=== PATIENT | female | born 1955 | race Caucasian/White ===

== ENCOUNTER 2016-07-01 13:00 | Emergency (ER) | payer SELFPAY ==
[2016-07-01 13:04] VITALS: O2SAT 99
[2016-07-01 14:06] LABS: BASOPHILS % (AUTO) 1 % (0-3); EOSINOPHILS % (AUTO) 1 % (0-9); HEMATOCRIT 42 % (35-47); MEAN CORPUSCULAR HGB CONC 35.3 gm/dl (32.0-36.0); MONOCYTES % (AUTO) 7.6 % (0-12); NEUTROPHILS % (AUTO) 63.5 % (37-80)
[2016-07-01 14:11] LABS: APPEARANCE,URINE Clear; BILIRUBIN,URINE NEGATIVE (NEGATIVE); COLOR,URINE Yellow; GLUCOSE, URINE (UA) NEGATIVE (NEGATIVE); KETONES,URINE NEGATIVE (NEGATIVE); LEUKOCYTE ESTERASE ,URINE NEGATIVE (NEGATIVE); NITRATE,URINE NEGATIVE (NEGATIVE); OCCULT BLOOD,URINE NEGATIVE (NEG-TRACE); UROBILINOGEN,URINE 0.2 (0.2-1.0 EU)
[2016-07-01 14:20] LABS: AMPHETAMINES NEGATIVE (NEGATIVE); METHADONE NEGATIVE (NEGATIVE); OPIATES(OP13) NEGATIVE (NEGATIVE); OXYCODONE(OXY) NEGATIVE (NEGATIVE); PROPOXYPHENE(PPX) NEGATIVE (NEGATIVE); RBC,URINE 0-2 (0-3AV/HPF); WBC,URINE 0-2 (0-5AV/HPF)
[2016-07-01 14:26] LABS: ALBUMIN 4.3 gm/dl (3.4-5.0); ALT 30 IU/L (14-63); CALCIUM 9.4 mg/dl (8.5-10.1); GLOM FILT RATE 98 mL/min (>60); POTASSIUM 3.6 mMol/L (3.5-5.1); SODIUM 141 mMol/L (136-145); THYROID STIMULATING HORMONE 2.342 uU/ml (0.358-3.740)
[2016-07-01 17:25] VITALS: BP 107/72; PULSE 76; RESP 16; TEMP 98.4
== END 2016-07-01 19:04 | disposition short-term general hospital (02) | DRG 885 ==
LOC: ED 13:00
DX: F29 Unspecified psychosis not due to a substance or known physiological condition (principal)
CPT/HCPCS: 36415; 80053; 80320; 81001; 84443; 85025; 99283

== ENCOUNTER 2018-01-07 18:05 | Emergency (ER) | payer BC ==
[2018-01-07] MEDS ORDERED: LIDOCAINE 1% W/EPI MPF 30 ML SOL ONE (18:32)
[2018-01-07] MEDS ORDERED: LIDOCAINE 1% W/EPI MPF 30 ML SOL INFIL ONE (19:00)
[2018-01-07 19:34] VITALS: TEMP 97.7
[2018-01-07 19:54] VITALS: BP 148/75; PULSE 64; RESP 22; O2SAT 100
== END 2018-01-07 20:21 | disposition home or self-care (01) ==
LOC: ED 18:05
DX: S01.81XA Laceration without foreign body of other part of head, initial encounter (principal)
CPT/HCPCS: 12002; 12034; 70450; 93005; 99283; A6402; A6446

== ENCOUNTER 2018-03-09 20:32 | Emergency (ER) | payer BC ==
[2018-03-09 20:34] VITALS: O2SAT 100
[2018-03-09 21:05] VITALS: BP 151/90; PULSE 73; RESP 18; TEMP 98
[2018-03-09] MEDS ORDERED: TRAMADOL HYDROCHLORIDE 50 MG TAB PO ONE (22:28)
[2018-03-09] MEDS ORDERED: TRAMADOL HYDROCHLORIDE 50 MG TAB ONE (22:31)
[2018-03-09 22:32] LABS: APPEARANCE,URINE Clear; BILIRUBIN,URINE NEGATIVE (NEGATIVE); COLOR,URINE Yellow; GLUCOSE, URINE (UA) NEGATIVE (NEGATIVE); KETONES,URINE NEGATIVE (NEGATIVE); LEUKOCYTE ESTERASE ,URINE NEGATIVE (NEGATIVE); NITRATE,URINE NEGATIVE (NEGATIVE); OCCULT BLOOD,URINE NEGATIVE (NEG-TRACE); PH,URINE 6.5; UROBILINOGEN,URINE 0.2 (0.2-1.0 EU)
[2018-03-09 22:48] LABS: BACTERIA NEGATIVE (< 1+); CRYSTALS NEGATIVE (0-3 AVE/HPF); EPITHELIAL CELLS NEGATIVE (SQUAMOUS); RBC,URINE NEG (0-3AV/HPF); WBC,URINE NEG (0-5AV/HPF)
== END 2018-03-09 23:48 | disposition home or self-care (01) ==
LOC: ED 20:32
DX: M54.5 Low back pain (principal); M79.605 Pain in left leg; M79.604 Pain in right leg; G31.09 Other frontotemporal neurocognitive disorder; F02.80 Dementia in other diseases classified elsewhere, unspecified severity, without behavioral disturbance, psychotic disturbance, mood disturbance, and anxiety; M41.9 Scoliosis, unspecified; M47.896 Other spondylosis, lumbar region
CPT/HCPCS: 72120; 81001; 99282; 99283; A9270-GY